=== PATIENT | male | born 1930 | race Caucasian/White ===

== ENCOUNTER 2020-09-08 09:50 | Emergency (ER) | payer MEDICARE, OTHER ==
[~2020-09-08 09:50] MED LIST: CYCLOBENZAPRINE10 MG PO; MEDROL 4MG DOSEP4 MG PO
[2020-09-08 10:39] LABS: BASOPHIL 0.6 % (0-2); EOSINOPHIL 0.4 % (0-7); HCT 35.4 % (42.0-52.0); HGB 11.1 g/dl (13.2-18.0); LYMPHOCYTE 9.5 % (15-48); MCH 25.5 pg (25.0-31.0); MCHC 31.4 g/dL (32.0-36.0); MCV 81.4 fL (78.0-100.0); MONOCYTE 9.3 % (0-12); MPV 9.1 fL (6.0-9.5); NEUTROPHIL 79.6 % (41-80); NRBC 0; PLT 436 K/uL (150-400); RBC 4.35 M/uL (4.70-6.00); RDW 14.3 % (11.5-14.0); WBC 8.5 K/uL (4.0-10.5)
[2020-09-08 10:59] LABS: BILIRUBIN - TOTAL 0.7 mg/dL (0.2-1.0); BUN/CREAT RATIO (CALC) 15.5 RATIO; CREATININE 0.97 mg/dL (0.67-1.17)
[2020-09-08 13:00] LABS: BILIRUBIN NEGATIVE (NEGATIVE); BLOOD NEGATIVE Ery/uL (NEGATIVE); CLARITY CLEAR (CLEAR); COLOR YELLOW (YELLOW); GLUCOSE (U) NORMAL (NORMAL); LEUKOCYTES NEGATIVE Leu/uL (NEGATIVE); NITRITE NEGATIVE (NEGATIVE); PROTEIN NEGATIVE (NEGATIVE); SPECIFIC GRAVITY 1.015 (1.001-1.030)
== END 2020-09-08 12:23 | disposition home or self-care (01) ==
LOC: FER 09:50
PROVIDERS: Emergency Medicine
DX: R42 Dizziness and giddiness (principal); E87.6 Hypokalemia; R51.9 Headache, unspecified; E11.9 Type 2 diabetes mellitus without complications; Z79.84 Long term (current) use of oral hypoglycemic drugs
CPT/HCPCS: 36415; 70450; 80053; 81003; 85025; 93005

== ENCOUNTER 2020-09-21 10:22 | Emergency (ER) | payer MEDICARE, OTHER ==
[2020-09-21] MEDS ORDERED: AUGMENTIN 875-1 EACH PO (11:03)
== END 2020-09-21 11:15 | disposition home or self-care (01) ==
LOC: FER 10:22
DX: L01.00 Impetigo, unspecified (principal); I10 Essential (primary) hypertension; E11.9 Type 2 diabetes mellitus without complications; Z79.82 Long term (current) use of aspirin; Z79.899 Other long term (current) drug therapy; Z79.84 Long term (current) use of oral hypoglycemic drugs
CPT/HCPCS: 99282

== ENCOUNTER 2020-11-23 15:29 | Emergency (ER) | payer MEDICARE, OTHER ==
[~2020-11-23 15:29] MED LIST changes: +AUGMENTIN 875-1 EACH PO
[2020-11-23 16:16] LABS: BASOPHIL 0.4 % (0-2); EOSINOPHIL 0 % (0-7); HCT 28.8 % (42.0-52.0); HGB 9.1 g/dl (13.2-18.0); LYMPHOCYTE 11.7 % (15-48); MCH 26.7 pg (25.0-31.0); MCHC 31.6 g/dL (32.0-36.0); MCV 84.5 fL (78.0-100.0); MONOCYTE 7.8 % (0-12); MPV 10.4 fL (6.0-9.5); NEUTROPHIL 74.2 % (41-80); NRBC 0.2; PLT 317 K/uL (150-400); RBC 3.41 M/uL (4.70-6.00); RDW 17.2 % (11.5-14.0)
[2020-11-23 16:17] LABS: WBC 24.8 K/uL (4.0-10.5)
[2020-11-23 16:34] LABS: ALBUMIN 2.5 g/dL (3.4-5.0); BILIRUBIN - TOTAL 0.3 mg/dL (0.2-1.0); CREATININE 1.33 mg/dL (0.67-1.17); GLOBULIN (CALCULATION) 2.6 g/dL; POTASSIUM 3.5 mmol/L (3.5-5.1); TOTAL PROTEIN 5.1 g/dL (6.4-8.2)
[2020-11-23 17:17] LABS: BILIRUBIN NEGATIVE (NEGATIVE); BLOOD TRACE-INTACT Ery/uL (NEGATIVE); CLARITY CLEAR (CLEAR); COLOR YELLOW (YELLOW); GLUCOSE (U) TRACE mg/dL (NORMAL); LEUKOCYTES NEGATIVE Leu/uL (NEGATIVE); NITRITE NEGATIVE (NEGATIVE); PROTEIN TRACE (LOW) mg/dL (NEGATIVE); UROBILINOGEN 0.2 mg/dL (0.2-1.0)
[2020-11-23 17:22] LABS: BACTERIA TRACE; URINARY RBC RARE
[2020-11-23 17:24] LABS: AMPHETAMINES NEGATIVE (NEGATIVE); BARBITURATES NEGATIVE (NEGATIVE); ECSTASY (MDMA) NEGATIVE (NEGATIVE); MARIJUANA (THC) NEGATIVE (NEGATIVE); METHADONE NEGATIVE (NEGATIVE); OPIATES NEGATIVE (NEGATIVE); OXYCODONE NEGATIVE (NEGATIVE)
== END 2020-11-23 19:50 | disposition other institution (70) ==
LOC: FER 15:29
PROVIDERS: Emergency Medicine
DX: A41.9 Sepsis, unspecified organism (principal); I71.3 Abdominal aortic aneurysm, ruptured; E11.9 Type 2 diabetes mellitus without complications; E07.9 Disorder of thyroid, unspecified; H54.40 Blindness, one eye, unspecified eye; Z79.899 Other long term (current) drug therapy
CPT/HCPCS: 36415; 70450; 71045; 80053; 80305; 81001; 83605; 84484; 85025; 87040; 93005; 96365; J2543; J7030